=== PATIENT | male | born 1955 | race Caucasian/White ===

== ENCOUNTER 2020-09-18 20:00 | Emergency (ER) | payer OTHER ==
[~2020-09-18] VITALS: Ht 175.3 cm; Wt 88.5 kg
[2020-09-18 20:15] VITALS: BP 133/90
--- NOTE | 2020-09-18 20:18 | NUR ---
TO LOBBY A/W BED AMBULATORY
--- NOTE | 2020-09-18 21:29 | NUR ---
pt ambulated to bed 09
--- NOTE | 2020-09-18 21:35 | NUR ---
PATIENT 65 Y/O MALE BIB SELF FOR C/O URINARY RETENTION X 1 DAY S/P "DRINKING BEER" AT HOME. PATIENT STATES 10/10 BLADDER PAIN AND UNABLE TO PEE AT THIS TIME. PATIENT NOTED WITH FIRM BLADDER. PATIENT DENIES TAKING PAIN MEDICATYION AT HOME. SKIN IS WRAM AND DRY AT THIS TIME. MEDHX: ENLARGED PROSTATE NKA
--- NOTE | 2020-09-18 21:35 | NUR ---
ERMD AT BEDSIDE FOR MEDICAL EVALUATION. AT BEDSIDE AT THIS TIME.
--- NOTE | 2020-09-18 21:53 | NUR ---
# 16 COUDE STRAIGHT catheter with inserted utilizing sterile technique. Immediate return of 1000 ml yellow urine noted. Urine sample collected and sent to lab. Pt tolerated procedure well.
--- NOTE | 2020-09-18 22:02 | NUR ---
Patient states 11/28 is now 0. "I feel so much better now that the urine is drained." Patient given water PO with consent from ERMD. To evaluate patient later on for futher urinary retention.
--- NOTE | 2020-09-18 22:10 | NUR ---
UA SAMPLE GIVEN TO LAB.
[2020-09-18 22:26] LABS: APPEARANCE,URINE CLEAR (CLEAR); BILIRUBIN,URINE NEGATIVE (NEGATIVE); BLOOD, URINE TRACE-I (NEGATIVE); COLOR,URINE YELLOW (YELLOW); LEUKOCYTE ESTERASE ,URINE NEGATIVE (NEGATIVE); NITRITE, URINE NEGATIVE (NEGATIVE); PH,URINE 5.5 (5.0-9.0); UGLUCOSE NEGATIVE (NEGATIVE)
[2020-09-18 22:52] LABS: RBC,URINE 0-5 /HPF (0-5); WBC,URINE NONE SEEN /HPF (0-5)
--- NOTE | 2020-09-18 23:14 | NUR ---
PATIENT ABLE TO URINATE 20ML OF URINE PRIOR TO BEING D/C. PATIENT STATES PAIN REMAINS 0/10.
[2020-09-18 23:16] VITALS: BP 133/85
--- NOTE | 2020-09-18 23:16 | NUR ---
Patient discharged with v/s stable. Written and verbal after care instructions given and explained. Patient verbalized understanding. Ambulatory with steady gait. All questions addressed prior to discharge. Advised to follow up with PMD.
[2020-09-19] MEDS ORDERED: CIPR500T4 PO (22:56)
== END 2020-09-18 23:16 | disposition home or self-care (01) ==
LOC: MED 20:00
DX: R33.9 Retention of urine, unspecified (principal)
CPT/HCPCS: 51701; 81001; 99283

== ENCOUNTER 2020-09-19 14:34 | Emergency (ER) | payer OTHER ==
[~2020-09-19] VITALS: Ht 177.8 cm; Wt 88.5 kg
[2020-09-19 14:45] VITALS: BP 113/82
--- NOTE | 2020-09-19 15:17 | NUR ---
HELLEN BARBOZA EVALUATING PT IN CHAIR C
[2020-09-19] MEDS ORDERED: ACETAMINOPHEN EXTRA STRENGTH 500 MG TAB PO ONE (15:30)
--- NOTE | 2020-09-19 15:34 | NUR ---
PT TAKEN TO BED 11
--- NOTE | 2020-09-19 15:45 | NUR ---
65 Y/O MALE C/O URINARY RETENTION AND NOT BEING ABLE TO URINATE SINCE YESTERDAY. PT WAS SEEN HERE LAST NIGHT WITH SAME COMPLAINT AND HAD STAIGHT CATH INSERTED AND REMOVED. PT HAS NOT BEEN ABLE TO URINATE SINCE. PT HAS SUPRAPUBIC TENDERNESS AND RATES PAIN 10/10. PT STATES "I HAVE TO GO PEE BUT I CANT". PT A/O X4 WITH EVEN AND UNLABORED RESPIRATIONS. PMH - HLD, BPH NKDA
--- NOTE | 2020-09-19 16:20 | NUR ---
16 ESTONIAN CARSON CATHETER- COUDE INSERTED USING STERILE TECHNIQUE. IMMEDIATE RETURN OF 900ML CLEAR YELLOW URINE
[2020-09-19 17:14] VITALS: BP 113/82
--- NOTE | 2020-09-19 17:15 | NUR ---
Patient discharged with v/s stable. Written and verbal after care instructions about BPH given and explained. Patient alert, oriented and verbalized understanding of instructions. Ambulatory with steady gait. All questions addressed prior to discharge. ID band removed. Patient advised to follow up with PMD. Rx of naprosyn given. Patient educated on indication of medication including possible reaction and side effects. Opportunity to ask questions provided and answered.
[2020-09-19] MEDS ORDERED: CIPR500T4 PO (22:56)
== END 2020-09-19 17:15 | disposition home or self-care (01) ==
LOC: MED 14:34
DX: R33.9 Retention of urine, unspecified (principal); E78.5 Hyperlipidemia, unspecified
CPT/HCPCS: 51702; 81002; 99284

== ENCOUNTER 2020-09-19 21:05 | Emergency (ER) | payer OTHER ==
[~2020-09-19] VITALS: Ht 177.8 cm; Wt 88.0 kg
[2020-09-19 21:25] VITALS: BP 141/96
--- NOTE | 2020-09-19 21:28 | NUR ---
TO LOBBY A/W BED AMBULATORY
--- NOTE | 2020-09-19 21:57 | NUR ---
PT AMBULATED TO BED #4
--- NOTE | 2020-09-19 22:10 | NUR ---
RECEIVED IN BED 4 WITH C/O LEAKING CATHETER. PT WAS SEEN HERE THIS AM AND HAD F/C TO LEG BAG PLACED. PT NOW WITH RED COLORED URINE NOTED IN LEG BAG.
--- NOTE | 2020-09-19 22:35 | NUR ---
DLADDER IRRIGATED WITH RETURN OF SEVERAL CLOTS. URINE FLOWS FOLLOWING IRRIGATION. Addendum: 09/19/20 at 2252 by MAGDALENA BLADDER IRRIGATED
[2020-09-19] MEDS ORDERED: CIPR500T4 PO (22:56)
[2020-09-19 23:26] VITALS: BP 141/96
== END 2020-09-19 23:26 | disposition home or self-care (01) ==
LOC: MED 21:05
DX: T83.018A Breakdown (mechanical) of other urinary catheter, initial encounter (principal); N39.0 Urinary tract infection, site not specified; Y73.8 Miscellaneous gastroenterology and urology devices associated with adverse incidents, not elsewhere classified
CPT/HCPCS: 81002; 99282